=== PATIENT | female | born 1990 | race Caucasian/White ===

== ENCOUNTER 2016-06-16 16:10 | Emergency (ER) | payer OTHER ==
[~2016-06-16] VITALS: Wt 81.6 kg
[~2016-06-16 16:10] MED LIST: MACROBID100 M1 PO; NAPROSYN500 MG PO; PNV-SELECT1 TAB PO; ZOFRAN4 MG PO
[2016-06-16] MEDS ORDERED: WELLBUTRIN SR150 MG PO (16:16)
[2016-06-16] MEDS ORDERED: LEXAPRO20 MG PO (16:16)
[2016-06-16] MEDS ORDERED: TRAZODONE150 MG PO (16:17)
[2016-06-16] MEDS ORDERED: XANAX1 MG PO (16:17)
== END 2016-06-16 16:27 | disposition home or self-care (01) ==
LOC: ED 16:10
DX: F41.9 Anxiety disorder, unspecified (principal); R03.0 Elevated blood-pressure reading, without diagnosis of hypertension; Z79.899 Other long term (current) drug therapy